=== PATIENT | male | born 1950 | race Caucasian/White ===

== ENCOUNTER 2018-01-13 22:19 | Emergency (ER) | payer OTHER, MEDICARE ==
[2018-01-13 22:30] VITALS: BP 117/77
[2018-01-13] MEDS ORDERED: INDOMETHACIN 25 MG CAP PO ONE (23:08)
--- NOTE | 2018-01-13 23:08 | EDPHY ---
General - History Smoking Status: Never smoked Time Seen by Provider: 01/13/18 22:44 Narrative: PHYSICIAN DOCUMENTATION: The patient was evaluated and managed by the Physician Pet Caretaker. My co- signature indicates that I have reviewed this chart and I agree with the findings and plan of care as documented. I am the secondary supervising physician. (Charline Fuller) CHIEF COMPLAINT: Foot pain HISTORY OF PRESENT ILLNESS: Patient complains of right pain. This started abruptly within the past 2 hr when he was exiting his vehicle. He said he planted his foot felt a pop in the metatarsals. It is moderate to severe pain. Worse with palpation ambulation. Pain radiates to the plantar surface of the foot. Improved with elevation. No redness or warmth. No previous trauma to the foot. No history of gout. No fever, chills or feeling ill. No injury elsewhere. No other associated complaints or modifying factors. ESTABLISHED ORTHOPEDIST: None REVIEW OF SYSTEMS: Ten systems reviewed and are negative unless otherwise noted in the HPI PAST MEDICAL HISTORY: Back surgeries PAST SURGICAL HISTORY: Multiple lumbar back surgeries remotely SOCIAL HISTORY: Nonsmoker. Occasional alcohol. No drug use. He recently went to [place] with his spouse and drink more than typical over the weekend. FAMILY HISTORY: EXAMINATION General Appearance: Alert, no distress Cardiovascular: Symmetric PT pulses 2+. Symmetric DP pulses 2+. Neurological: A&O, sensory symmetric, strength of the great toe symmetric. Skin: Warm and dry, no rash. No petechiae. No purpura. No erythema, crepitus or gangrene. No cyanosis or pallor. Extremities: Tenderness to the dorsum of the right foot over the 1st, 2nd, 3rd metatarsals. Mild swelling to the dorsum. Range of motion of the ankles symmetric. Psychiatric: Mood and affect normal DIFFERENTIAL DIAGNOSES: Including but not limited to sprain, strain, fracture, Kim's neuroma, acute gout MDM: 11:10 p.m. Acute right foot pain after stepping out of a vehicle. The foot does have some swelling to it but has no erythema, cellulitis or signs of infection. He is neurovascular intact. I have ordered an x-ray and some anti-inflammatory for him. 11:57 p.m. X-rays negative for any acute findings. We discussed the possibilities of other etiologies including gout, metatarsalgia, more neuroma, sprain, strain. We discussed discharge home with postoperative shoe. He has a walking stick with him he would like to use. I did offer crutches and he has declined. He is able to ambulate without any difficulty with a steady gait. We discussed short course of pain medication. I would like him to follow up with primary care physician and Orthopedics for definitive care. SUPERVISION: This patient was independently evaluated without direct involvement of or examination by the attending physician. ED Precautions: Worsening pain. Erythema, edema, cyanosis, pallor, paresthesia or anesthesia. (Geo Sheldon) - Objective Vital Signs: Initial Vital Signs Temperature (C) 97.5 F 01/13/18 22:27 Heart Rate 73 01/13/18 22:27 Respiratory Rate 16 01/13/18 22:27 Blood Pressure 117/77 01/13/18 22:27 O2 Sat (%) 98 01/13/18 22:27 O2 Delivery Mode Room Air Allergies/Adverse Reactions: No Known Allergies Allergy (Unverified 01/13/18 22:30) Home Medications: Medication Instructions Recorded Ambien 01/13/18 oxyCODONE HCL/ACETAMINOPHEN 1 each PO Q4-6PRN PRN #7 tablet 01/13/18 [Percocet 5-325 mg Tablet] Medications Given: Discontinued Medications Indomethacin (Indocin) 50 mg PO EDNOW ONE Stop: 01/13/18 23:09 Last Admin: 01/13/18 23:38 Dose: 50 mg Oxycodone/Acetaminophen (Percocet 5/325mg Prepack#4) 1 btl TAKEHOME EDNOW ONE Stop: 01/13/18 23:58 Last Admin: 01/14/18 00:11 Dose: 1 btl Departure - Departure Disposition: Home, Routine, Self-Care Clinical Impression: Foot pain, left Sprain of foot, left Qualifiers: Encounter type: initial encounter Qualified Code(s): S93.602A - Unspecified sprain of left foot, initial encounter Condition: Good Instructions: Oxycodone/Acetaminophen (By mouth), Arthralgia (ED), Metatarsalgia (DC) Additional Instructions: 1. Ice and elevate as needed 2. Postop shoe as provided as needed. Weightbearing as tolerated 3. Contact primary care physician and orthopedist on-call as provided for definitive care Referrals: Gregorio Doss MD [Medical Doctor] - As per Instructions Prescriptions: oxyCODONE HCL/ACETAMINOPHEN [Percocet 5-325 mg Tablet] 1 each PO Q4-6PRN PRN #7 tablet PRN Reason: Pain, Breakthrough
[2018-01-13] MEDS ORDERED: OXYCODONE/APAP 5/325MG PREPACK#4 BTL TAKEHOME ONE (23:57)
== END 2018-01-14 00:12 | disposition home or self-care (01) ==
DX: S93.601A Unspecified sprain of right foot, initial encounter (principal); X58.XXXA Exposure to other specified factors, initial encounter
CPT/HCPCS: 73630; 99283; L4386